=== PATIENT | male | born 1985 | race Caucasian/White ===

== ENCOUNTER 2020-10-16 10:12 | Emergency (ER) | payer SELFPAY ==
[~2020-10-16] VITALS: Ht 185 cm; Wt 63.6 kg
[2020-10-16 10:12] VITALS: BP 115/90
--- NOTE | 2020-10-16 10:41 | ED Neurological Problem ---
General Chief Complaint: Neurological Problems Stated Complaint: SEIZURE Nursing Triage Note: TO ED PER EMS FROM [facility] PATIENT WAS AT WORK WHEN STAFF OBSERVED A SEIZURE. ON EMS ARRIVAL THEY REPORT PATIENT POST ETHICAL ON ARRIVAL TO ED ALERT AND ANSWERS QUESTION PATIENT REPORTS HAS HAD SEIZURES FOR 2 YEARS BUT NOT SEEN ANYONE LAST SEIZURE WAS 2 DAYS AGO. Source: patient Exam Limitations: no limitations History of Present Illness Date Seen by Provider: Oct 16, 2020 Time Seen by Provider: 10:28 Initial Comments Patient is a 34-year-old male who presents to the emergency department today with a chief complaint of "seizure" while at work today. EMS reported to nursing staff when they deposited the patient that he seemed a little "postictal" when they picked him up. Patient tells me that he has a history of these seizure episodes off and on for the last 2 years. He attributes them to playing the "passout game" while he was in high school. He denies any head injuries. No recent illnesses. No fevers, chills, cough or congestion, no Covid exposures that he is aware of. He is not Covid immunized. Patient denies biting his tongue or hurting himself during the seizure. No witnesses are available to estimate how long the seizure lasted. He states sometimes they last 1 to 2 minutes. He states they were coming on every 4 months or so but in the last month he has had 5 or 6. His most recent seizure was 2 days ago when he used methamphetamine. Patient states he is now "quit". All other review of systems reviewed and negative except as stated. Timing/Duration: 1 hour Associated Symptoms: denies symptoms Allergies and Home Medications Patient Home Medication List Home Medication List Reviewed: Yes Review of Systems Review of Systems Constitutional: see HPI Eyes: No Symptoms Reported Ears, Nose, Mouth, Throat: no symptoms reported Respiratory: no symptoms reported Cardiovascular: no symptoms reported Gastrointestinal: no symptoms reported Genitourinary: no symptoms reported Musculoskeletal: no symptoms reported Skin: no symptoms reported Psychiatric/Neurological: Tingling (prior to seizure) All Other Systems Reviewed Negative Unless Noted: Yes Past Idkdfqs-Iowcuq-Jevevn Hx Patient Social History Tobacco Use?: No Substance use?: Yes Substance type: Methamphetamine Pt feels they are or have been: No Physical Exam Vital Signs Vital Signs - First Documented 10/16/20 10:12 Temp 36.8 Pulse 76 Resp 18 B/P (MAP) 115/90 (98) Pulse Ox 99 O2 Delivery Room Air Capillary Refill : Less Than 3 Seconds Height, Weight, BMI Height: '" Weight: lbs. oz. kg; 18.00 BMI Method: General Appearance: WD/WN, no apparent distress HEENT: PERRL/EOMI, normal ENT inspection, TMs normal, pharynx normal Neck: supple Respiratory: lungs clear, normal breath sounds, no respiratory distress, no accessory muscle use Cardiovascular: regular rate, rhythm Gastrointestinal: non tender, soft Extremities: non-tender, normal inspection, no pedal edema Neurologic/Psychiatric: alert, normal mood/affect, oriented x 3 Crainal Nerves: normal hearing, normal speech, PERRL Coordination/Gait: normal gait Motor/Sensory: no motor deficit, no sensory deficit Skin: normal color, warm/dry Progress/Results/Core Measures Results/Orders Lab Results Laboratory Tests Test 10/16/20 10:10 Range/Units White Blood Count 5.0 4.3-11.0 10^3/uL Red Blood Count 4.33 4.30-5.52 10^6/uL Hemoglobin 12.7 L 13.3-17.7 g/dL Hematocrit 38 L 40-54 % Mean Corpuscular Volume 87 80-99 fL Mean Corpuscular Hemoglobin 29 25-34 pg Mean Corpuscular Hemoglobin Concent 34 32-36 g/dL Red Cell Distribution Width 13.0 10.0-14.5 % Platelet Count 279 130-400 10^3/uL Mean Platelet Volume 9.7 9.0-12.2 fL Immature Granulocyte % (Auto) 0 % Neutrophils (%) (Auto) 50 42-75 % Lymphocytes (%) (Auto) 34 12-44 % Monocytes (%) (Auto) 11 0-12 % Eosinophils (%) (Auto) 3 0-10 % Basophils (%) (Auto) 2 0-10 % Neutrophils # (Auto) 2.5 1.8-7.8 10^3/uL Lymphocytes # (Auto) 1.7 1.0-4.0 10^3/uL Monocytes # (Auto) 0.6 0.0-1.0 10^3/uL Eosinophils # (Auto) 0.1 0.0-0.3 10^3/uL Basophils # (Auto) 0.1 0.0-0.1 10^3/uL Immature Granulocyte # (Auto) 0.0 0.0-0.1 10^3/uL Sodium Level 138 135-145 MMOL/L Potassium Level 3.8 3.6-5.0 MMOL/L Chloride Level 109 H 98-107 MMOL/L Carbon Dioxide Level 22 21-32 MMOL/L Anion Gap 7 5-14 MMOL/L Blood Urea Nitrogen 12 7-18 MG/DL Creatinine 0.80 0.60-1.30 MG/DL Estimat Glomerular Filtration Rate 111 BUN/Creatinine Ratio 15 Glucose Level 102 70-105 MG/DL Calcium Level 8.7 8.5-10.1 MG/DL My Orders Orders - JASON BAUMAN MD Ct Head Wo (10/16/20 10:37) Ekg Tracing (10/16/20 10:37) Cbc With Automated Diff (10/16/20 10:37) Basic Metabolic Panel (10/16/20 10:37) Ed Iv/Invasive Line Start (10/16/20 10:37) Vital Signs/I&O 10/16/20 10:12 Temp 36.8 Pulse 76 Resp 18 B/P (MAP) 115/90 (98) Pulse Ox 99 O2 Delivery Room Air Blood Pressure Mean: 98 Progress Progress Note : Time: 11:39 Progress Note Patient seen and evaluated, concern for seizure this morning. Patient with reported increasing frequency of the seizures. Evaluation today includes a physical exam, CBC, chemistry, EKG and CT brain noncontrast. All of the patient's work-up has been reviewed and is reassuring. No intracranial abnormalities are identified. EKG is normal, labs are normal. Vital signs have been stable. Patient is strongly encouraged to follow-up at [facility] regarding the seizure episodes. He likely needs referral to a neurologist for further evaluation and management. I have strongly counseled the patient on stopping using methamphetamine. He verbalizes understanding. I have encouraged him to get his Covid vaccine. He has no clinical or objective findings to warrant further studies from the emergency department. All questions are sought and answered. Patient stable for discharge. Initial ECG Impression Date: Oct 16, 2020 Initial ECG Impression Time: 10:43 Initial ECG Rate: 59 Initial ECG Rhythm: Normal Sinus Initial ECG Intervals: Normal Initial ECG Impression: Normal Initial ECG Comparisson: No Previous ECG Available Diagnostic Imaging Diagonstic Imaging: CT Comments [facility], [place] NAME: DAO GENTILE [facility] REC#: [id number] PT STATUS: REG ER : 1985 PHYSICIAN: JSAON BAUMAN MD ADMIT DATE: 10/16/20/ER Draft Date of Exam:10/16/20 CT HEAD WO PROCEDURE: CT head without contrast. TECHNIQUE: Multiple contiguous axial images were obtained through the brain without the use of intravenous contrast. Auto Exposure Controls were utilized during the CT exam to meet ALARA standards for radiation dose reduction. INDICATION: Seizure COMPARISON: None FINDINGS: The ventricles and cortical sulci are age-appropriate. There is no midline shift or mass effect. There is no CT evidence of acute territorial ischemia. The calvarium appears intact. The visualized paranasal sinuses are clear. IMPRESSION: 1. No acute intracranial abnormality. Dictated on workstation # [id number] Dict: 10/16/20 1105 Trans: 10/16/20 1107 [facility] [id number] Interpreted by: ROMI HERNANDEZ MD Electronically signed by: Departure Impression Primary Impression: Seizure Disposition: 01 HOME, SELF-CARE Condition: Stable Departure-Patient Inst. Decision time for Depature: 11:40 Referrals: [facility] [place] Patient Instructions: Seizures, Adult (DC) Add. Discharge Instructions: Please follow-up with a primary care physician at [facility] this week. Do not swim, climb ladders, drive or place yourself in harm's way until you have been seen by your primary doctor and neurology and a plan of care has been established for the seizures. Return to the emergency department for reevaluation for any further seizures or new emergent or concerning symptoms. Work/School Note: Work Release Form Date Seen in the Emergency Department: Oct 16, 2020 Return to Work: Oct 18, 2020 JASNO BAUMAN MD Oct 16, 2020 10:41
[2020-10-16 10:47] LABS: POTASSIUM 3.8 MMOL/L (3.6-5.0)
[2020-10-16 10:49] LABS: CALCIUM 8.7 MG/DL (8.5-10.1)
[2020-10-16 10:53] LABS: CREATININE SERUM 0.8 MG/DL (0.60-1.30)
--- NOTE | 2020-10-16 11:08 | Diagnostic Imaging Report ---
PROCEDURE: CT head without contrast. TECHNIQUE: Multiple contiguous axial images were obtained through the brain without the use of intravenous contrast. Auto Exposure Controls were utilized during the CT exam to meet ALARA standards for radiation dose reduction. INDICATION: Seizure COMPARISON: None FINDINGS: The ventricles and cortical sulci are age-appropriate. There is no midline shift or mass effect. There is no CT evidence of acute territorial ischemia. The calvarium appears intact. The visualized paranasal sinuses are clear. IMPRESSION: 1. No acute intracranial abnormality. Dictated by: Dictated on workstation # [id number]
[2020-10-16 11:23] LABS: BASOPHILS # (AUTO) 0.1 10^3/uL (0.0-0.1); BASOPHILS % (AUTO) 2 % (0-10); EOSINOPHILS # (AUTO) 0.1 10^3/uL (0.0-0.3); EOSINOPHILS % (AUTO) 3 % (0-10); HEMATOCRIT 38 % (40-54); HEMOGLOBIN 12.7 g/dL (13.3-17.7); LYMPHOCYTES # (AUTO) 1.7 10^3/uL (1.0-4.0); LYMPHOCYTES % (AUTO) 34 % (12-44); MEAN CORPUSCULAR HEMOGLOBIN 29 pg (25-34); MEAN CORPUSCULAR HGB CONC 34 g/dL (32-36); MEAN CORPUSCULAR VOLUME 87 fL (80-99); MEAN PLATELET VOLUME 9.7 fL (9.0-12.2); MONOCYTES # (AUTO) 0.6 10^3/uL (0.0-1.0); MONOCYTES % (AUTO) 11 % (0-12); NEUTROPHILS # (AUTO) 2.5 10^3/uL (1.8-7.8); NEUTROPHILS % (AUTO) 50 % (42-75); PLATELET COUNT 279 10^3/uL (130-400)
== END 2020-10-16 12:14 | disposition home or self-care (01) ==
LOC: ER 10:13
DX: R56.9 Unspecified convulsions (principal)
CPT/HCPCS: 36415; 70450; 80048; 85025; 93005

== ENCOUNTER 2021-09-20 16:56 | Emergency (ER) | payer SELFPAY ==
[~2021-09-20] VITALS: Ht 180.3 cm; Wt 63.6 kg
--- NOTE | 2021-09-20 17:23 | ED Abdominal Pain ---
General Chief Complaint: Abdominal/GI Problems Stated Complaint: RLQ PAIN Nursing Triage Note: states pain started about a week ago and has worsened today and is exacerbated by the heat. 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 last had tylenol yesterday afternoon 1000 mg and felt it did not help so has not taken anything today for pain. . Source of Information: Patient Exam Limitations: No Limitations (YOVANY CALDERÓN) History of Present Illness Date Seen by Provider: Sep 20, 2021 Time Seen by Provider: 17:07 Initial Comments Patient presents the ER by private conveyance with 1 week of right lower quadrant abdominal tenderness, cramping in nature. Has not improved. He been working outside in the heat. He has had some nausea with one episode of vomiting. Bowel movements are normal with his last episode yesterday, unremarkable. No fevers or chills. No abdominal surgery history. Mom had c holelithiasis at his age. No history of scope. No history of kidney stones hematuria or dysuria. No rash or itching. (YOVANY CALDERÓN) Allergies and Home Medications Allergies Coded Allergies: No Known Drug Allergies (Unverified , 09/20/21) Patient Home Medication List Home Medication List Reviewed: Yes (BRIANNA OSULLIVAN MD) Home Medication List Reviewed: Yes (SOHAIL PALAFOX) Hydrocodone/Acetaminophen (Hydrocodone-Acetamin 5-325 mg) 5 Mg-325 Mg Tablet, 1 TAB PO Q6H PRN for PAIN-MODERATE (5-7) Prescribed by: HE SANTANA on 09/20/211909 Review of Systems Review of Systems Constitutional: see HPI (SOHAIL PALAFOX) Past Hfaluox-Tlynkp-Qmqjxu Hx Patient Social History Tobacco Use?: No Use of E-Cig and/or Vaping dev: No Substance use?: Yes Substance type: Marijuana Alcohol Use?: Yes Alcohol Frequency: Once in a while (BRIANNA OSULLIVAN MD) Past Medical History Surgeries: Yes Orthopedic (Right foot reconstruction) Respiratory: No Cardiac: No Neurological: No Genitourinary: No Gastrointestinal: No Musculoskeletal: No Endocrine: No HEENT: No Cancer: No Psychosocial: No Integumentary: No (BRIANNA OSULLIVAN MD) Physical Exam Vital Signs Vital Signs - First Documented 09/20/21 17:11 Temp 36.1 Pulse 97 Resp 18 B/P (MAP) 125/85 (98) Pulse Ox 99 O2 Delivery Room Air (BRIANNA OSULLIVAN MD) Vital Signs Capillary Refill : Less Than 3 Seconds (YOVANY CALDERÓN) Height/Weight/BMI Height: '" Weight: lbs. oz. kg; 19.00 BMI Method: (YOVANY CALDERÓN) General Appearance: no apparent distress HEENT: PERRL/EOMI, normal ENT inspection Neck: non-tender, full range of motion, supple Respiratory: chest non-tender, lungs clear, normal breath sounds Cardiovascular: regular rate, rhythm, no edema Gastrointestinal: tenderness (Diffuse tenderness ) Extremities: normal range of motion, non-tender, normal inspection Back: normal inspection, no CVA tenderness, no vertebral tenderness Neurologic/Psychiatric: cotton baler II-XII nml as tested, no motor/sensory deficits, alert, normal mood/affect, oriented x 3 (SOHAIL PALAFOX) Progress/Results/Core Measures Results/Orders Lab Results Laboratory Tests Test 09/20/21 17:15 09/20/21 17:34 Range/Units White Blood Count 9.9 4.3-11.0 10^3/uL Red Blood Count 6.04 H 4.30-5.52 10^6/uL Hemoglobin 18.0 H 13.3-17.7 g/dL Hematocrit 52 40-54 % Mean Corpuscular Volume 86 80-99 fL Mean Corpuscular Hemoglobin 30 25-34 pg Mean Corpuscular Hemoglobin Concent 35 32-36 g/dL Red Cell Distribution Width 13.2 10.0-14.5 % Platelet Count 447 H 130-400 10^3/uL Mean Platelet Volume 9.6 9.0-12.2 fL Immature Granulocyte % (Auto) 0 % Neutrophils (%) (Auto) 71 42-75 % Lymphocytes (%) (Auto) 18 12-44 % Monocytes (%) (Auto) 10 0-12 % Eosinophils (%) (Auto) 1 0-10 % Basophils (%) (Auto) 1 0-10 % Neutrophils # (Auto) 7.0 1.8-7.8 10^3/uL Lymphocytes # (Auto) 1.8 1.0-4.0 10^3/uL Monocytes # (Auto) 1.0 0.0-1.0 10^3/uL Eosinophils # (Auto) 0.1 0.0-0.3 10^3/uL Basophils # (Auto) 0.1 0.0-0.1 10^3/uL Immature Granulocyte # (Auto) 0.0 0.0-0.1 10^3/uL Sodium Level 140 135-145 MMOL/L Potassium Level 4.3 3.6-5.0 MMOL/L Chloride Level 100 98-107 MMOL/L Carbon Dioxide Level 26 21-32 MMOL/L Anion Gap 14 5-14 MMOL/L Blood Urea Nitrogen 31 H 7-18 MG/DL Creatinine 1.49 H 0.60-1.30 MG/DL Estimat Glomerular Filtration Rate 63 BUN/Creatinine Ratio 21 Glucose Level 99 70-105 MG/DL Calcium Level 11.1 H 8.5-10.1 MG/DL Corrected Calcium 8.5-10.1 MG/DL Total Bilirubin 2.0 H 0.1-1.0 MG/DL Aspartate Amino Transf (AST/SGOT) 67 H 5-34 U/L Alanine Aminotransferase (ALT/SGPT) 124 H 0-55 U/L Alkaline Phosphatase 71 40-136 U/L C-Reactive Protein High Sensitivity 0.07 0.00-0.50 MG/DL Total Protein 9.4 H 6.4-8.2 GM/DL Albumin 5.9 H 3.2-4.5 GM/DL Lipase 9 8-78 U/L Urine Color YELLOW Urine Clarity CLEAR Urine pH 5.0 5-9 Urine Specific [place] >=1.030 1.016-1.022 Urine Protein 2+ H NEGATIVE Urine Glucose (UA) NEGATIVE NEGATIVE Urine Ketones NEGATIVE NEGATIVE Urine Nitrite NEGATIVE NEGATIVE Urine Bilirubin 1+ H NEGATIVE Urine Urobilinogen 1.0 < = 1.0 MG/DL Urine Leukocyte Esterase NEGATIVE NEGATIVE Urine RBC (Auto) TRACE-I H NEGATIVE Urine RBC 2-5 H /HPF Urine WBC 0-2 /HPF Urine Squamous Epithelial Cells NONE /HPF Urine Crystals NONE /LPF Urine Bacteria NEGATIVE /HPF Urine Casts PRESENT /LPF Urine Hyaline Casts 10-25 H /LPF Urine Mucus SMALL H /LPF Urine Culture Indicated NO (BRIANNA OSULLIVAN MD) My Orders Orders - BRIANNA OSULLIVAN MD Hydrocodone/Apap 5/325 Tablet (Lortab 5 (09/20/21 19:00) (BRIANNA OSULLIVAN MD) Medications Given in ED (BRIANNA OSULLIVAN MD) Vital Signs/I&O 09/20/21 09/20/21 17:11 19:15 Temp 36.1 36.6 Pulse 97 74 Resp 18 16 B/P (MAP) 125/85 (98) 105/71 Pulse Ox 99 98 O2 Delivery Room Air Room Air 09/21/21 00:00 Intake Total 1000 ml Balance 1000 ml (BRIANNA OSULLIVAN MD) Blood Pressure Mean: 98 Progress Progress Note : Time: 19:00 Progress Note Patient was originally seen in interviewed by Dr. Calderón. Work-up was initiated and he was treated with Zofran, Toradol, and a liter of IV fluids. He had improvement in his pain but still complains of residual pain of 7/10. On exam he still has fairly diffuse tenderness throughout the right abdomen. CT exam was unremarkable. There is no evidence of appendicitis or ureteral stone. Calcification was noted in the penile shaft. This was discussed with the radiologist. It was felt to be too dorsal to be within the urethra. I discussed further work-up with the patient and have advised an ultrasound of the gallbladder tomorrow morning. An order is being provided. I have also advised that he set up the financial assistance through the hospital and establish with a primary care provider at [facility]. He was given a hydrocodone before discharge. A prescription for a few additional tablets was ordered. Noncarbonated clear liquid diet for 24 hours was recommended. See discharge instructions for further discussion. (BRIANNA OSULLIVAN MD) Diagnostic Imaging Diagonstic Imaging: CT Plain Films/CT/US/NM/MRI: abdomen, pelvis Reviewed: Reviewed by Me (YOVANY CALDERÓN) Transfer of Care Time: 18:11 Care transferred to: Dr. Engle (YOVANY CALDERÓN) Departure Impression Primary Impression: Right-sided abdominal pain of unknown cause Disposition: 01 HOME, SELF-CARE Condition: Improved Departure-Patient Inst. Referrals: NO,LOCAL PHYSICIAN (PCP/Family) Primary Care Physician Patient Instructions: Abdominal Pain, Adult ED Add. Discharge Instructions: Drink lots of clear liquids to stay well-hydrated. You should be drinking enough clear liquids to make your urine a light yellow to clear color. Adhere to a noncarbonated clear liquid diet for 24 hours. Do not eat or drink anything after 1:00 tomorrow morning and present to the hospital at 7:30 with your order form for the gallbladder ultrasound and these discharge papers. This is ordered as a stat exam, so you do not need to schedule it ahead of time. You may take ibuprofen up to 600 mg every 6 hours as needed for pain. Use hydrocodone as prescribed for pain not controlled by ibuprofen. Establish with a primary care provider soon as possible. Please call tomorrow morning for an appointment. Return to the ER if you have worsening symptoms despite following these instructions. All discharge instructions reviewed with patient and/or family. Voiced understanding. Scripts Hydrocodone/Acetaminophen (Hydrocodone-Acetamin 5-325 mg) 5 Mg-325 Mg Tablet 1 TAB PO Q6H PRN for PAIN-MODERATE (5-7), #5 TAB Prov: SOHAIL PALAFOX 09/20/21 Work/School Note: Work Release Form Date Seen in the Emergency Department: Sep 20, 2021 Return to Work: Sep 22, 2021 Restrictions: No Restrictions YOVANY CALDERÓN Sep 20, 2021 17:23 BRIANNA OSULLIVAN MD Sep 20, 2021 19:03 SOHAIL PALAFOX Sep 20, 2021 19:10
[2021-09-20 17:28] LABS: BASOPHILS # (AUTO) 0.1 10^3/uL (0.0-0.1); BASOPHILS % (AUTO) 1 % (0-10); EOSINOPHILS # (AUTO) 0.1 10^3/uL (0.0-0.3); EOSINOPHILS % (AUTO) 1 % (0-10); HEMATOCRIT 52 % (40-54); LYMPHOCYTES # (AUTO) 1.8 10^3/uL (1.0-4.0); LYMPHOCYTES % (AUTO) 18 % (12-44); MEAN CORPUSCULAR HEMOGLOBIN 30 pg (25-34); MEAN CORPUSCULAR HGB CONC 35 g/dL (32-36); MEAN CORPUSCULAR VOLUME 86 fL (80-99); MEAN PLATELET VOLUME 9.6 fL (9.0-12.2); MONOCYTES % (AUTO) 10 % (0-12); NEUTROPHILS % (AUTO) 71 % (42-75); PLATELET COUNT 447 10^3/uL (130-400); WHITE BLOOD COUNT 9.9 10^3/uL (4.3-11.0)
[2021-09-20 17:33] LABS: ALBUMIN 5.9 GM/DL (3.2-4.5); CHLORIDE 100 MMOL/L (98-107); POTASSIUM 4.3 MMOL/L (3.6-5.0); SODIUM 140 MMOL/L (135-145)
[2021-09-20 17:35] LABS: CALCIUM 11.1 MG/DL (8.5-10.1)
[2021-09-20 17:36] LABS: GLUCOSE 99 MG/DL (70-105); TOTAL PROTEIN 9.4 GM/DL (6.4-8.2)
[2021-09-20 17:37] LABS: CARBON DIOXIDE 26 MMOL/L (21-32)
[2021-09-20 17:39] LABS: ALKALINE PHOSPHATASE 71 U/L (40-136)
[2021-09-20 17:40] LABS: CREATININE SERUM 1.49 MG/DL (0.60-1.30); GFR ESTIMATED 63
[2021-09-20 17:41] LABS: BUN/CREATININE RATIO 21
[2021-09-20 17:42] LABS: ALANINE AMINOTRANSFERASE 124 U/L (0-55)
[2021-09-20 17:43] LABS: LIPASE 9 U/L (8-78)
[2021-09-20 17:44] LABS: CLARITY,URINE CLEAR; COLOR,URINE YELLOW; GLUCOSE, URINE (UA) NEGATIVE (NEGATIVE); KETONES,URINE NEGATIVE (NEGATIVE); LEUKOCYTE ESTERASE ,URINE NEGATIVE (NEGATIVE); NITRITE,URINE NEGATIVE (NEGATIVE); PROTEIN,URINE 2+ (NEGATIVE)
[2021-09-20] MEDS ORDERED: ONDANSETRON 4 MG/2 ML (SDV) Z0FRAN IVP ONE (17:45)
[2021-09-20] MEDS ORDERED: LACTATED RINGERS 1,000 ML IV ONE (17:45)
[2021-09-20] MEDS ORDERED: KETOROLAC 30 MG/ML VIAL IVP ONE (17:45)
[2021-09-20 18:02] LABS: BACTERIA,URINE NEGATIVE /HPF; BILIRUBIN,URINE 1+ (NEGATIVE); WBC,URINE 0-2 /HPF
--- NOTE | 2021-09-20 18:19 | Diagnostic Imaging Report ---
PROCEDURE: CT urinary tract, rule out kidney stone. TECHNIQUE: Multiple contiguous axial images were obtained through the abdomen and pelvis without the use of intravenous contrast. Auto Exposure Controls were utilized during the CT exam to meet ALARA standards for radiation dose reduction. DATE: September 20, 2021. COMPARISON: None. INDICATION: 35-year-old male, left flank pain. FINDINGS: There are limitations for evaluation of the abdominal organs, neoplastic processes, abscess, and limited evaluation of the vasculature relating to the lack of intravenous contrast. The visualized portions of the lung bases are clear. The heart is not enlarged. There is no pericardial effusion. The liver is normal in size and contour. The gallbladder is unremarkable. There is no identified intrahepatic or extrahepatic bile duct dilation. The main pancreatic duct is not grossly dilated. Limited noncontrast assessment of the pancreatic parenchyma is unremarkable. The spleen is normal in size. The adrenal glands are unremarkable. There is a low-attenuation left renal lesion on axial image 58 which measures 8 mm in size. This does have an internal attenuation value of 9 Hounsfield units which is consistent with a benign cyst. The urinary collecting systems are not distended. There is no identified renal or ureteral stone. Urinary bladder is underdistended and not well evaluated. The intestinal tract is not distended. There is no free intraperitoneal air. There is no drainable fluid collection. There is no identified free fluid in the abdomen or pelvis. There is no identified abnormally enlarged lymph node in the abdomen or pelvis meeting CT size criteria for adenopathy. There is no acute bony abnormality. IMPRESSION: CT ABDOMEN AND PELVIS. 1. No identified acute abnormality in the abdomen or pelvis. 2. An 8 mm benign left renal cyst. Dictated by: Dictated on workstation # [id number]
[2021-09-20] MEDS ORDERED: HYDROcodone/APAP 5 MG/325 MG (LORTAB) TAB PO ONE (19:00)
[2021-09-20] MEDS ORDERED: ACHD5005 PO (19:09)
[2021-09-20 19:15] VITALS: BP 105/71
== END 2021-09-20 19:19 | disposition home or self-care (01) ==
LOC: EDUNIT# 16:56 → ER 16:58
DX: R10.31 Right lower quadrant pain (principal); Z28.310 Unvaccinated for COVID-19
CPT/HCPCS: 36415; 74176; 80053; 81000; 83690; 85025; 86141